=== PATIENT | female | born 1985 | race African-American/Black ===

== ENCOUNTER 2019-06-29 02:34 | Emergency (ER) | payer OTHER ==
[~2019-06-29] VITALS: Ht 175.3 cm; Wt 136.1 kg
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
[2019-06-29] MEDS ORDERED: Acetaminophen 500mg (ES) tab ORAL ONE (03:15)
[2019-06-29] MEDS ORDERED: Methocarbamol 750mg tab ORAL ONE (03:15)
[2019-06-29] MEDS ORDERED: LIDODERM700 M1 TOPIC (03:23)
[2019-06-29] MEDS ORDERED: ROBAXIN-750750 MG PO (03:23)
[2019-06-29] MEDS ORDERED: TYLENOL EXTRA500 MG ORAL (03:23)
[2019-06-29 03:26] VITALS: BP 148/86
[2019-06-29 03:30] VITALS: BP 148/86
--- NOTE | 2019-06-29 03:30 | NUR ---
ER DISCHARGE NOTE: Patient is cleared to be discharged per ERMD, pt is aox4, on room air, with stable vital signs. pt was given dc and prescription instructions, pt was able to verbalize understanding, pt id band removed without complications. pt is able to ambulate with steady gait. pt took all belongings.
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
== END 2019-06-29 03:30 | disposition home or self-care (01) ==
LOC: EMR 03:02
DX: M54.2 Cervicalgia (principal); M54.6 Pain in thoracic spine; V43.62XA Car passenger injured in collision with other type car in traffic accident, initial encounter; Y92.9 Unspecified place or not applicable; E66.9 Obesity, unspecified
CPT/HCPCS: 99282

== ENCOUNTER 2019-09-06 20:09 | Emergency (ER) | payer MEDICAID ==
[~2019-09-06] VITALS: Ht 175.3 cm; Wt 113.4 kg
[~2019-09-06 20:09] MED LIST: LIDODERM700 M1 TOPIC; ROBAXIN-750750 MG PO; TYLENOL EXTRA500 MG ORAL
--- NOTE | 2019-09-06 20:28 | NUR ---
ED Nurse Note: pt presents to ED c/o R arm pain that goes from her wrist to her shoulder. pt denies any trauma or injury to the area, she has never experienced this pain before. pt reports that she woke up with the pain, it is 10/10 and constant. pt states she took tylenol at home without relief of symptoms.
[2019-09-06 20:34] VITALS: BP 125/75
[2019-09-06] MEDS ORDERED: Ketorolac 30mg Inj IM ONE (21:15)
--- NOTE | 2019-09-06 21:17 | Emergency Room Report ---
History of Present Illness General Chief Complaint: Upper Extremity Injury Source: Patient Present Illness HPI Patient presents with right shoulder pain for 2 to 3 days. She is having difficulty even raising her elbow or any motion. She denies any trauma. 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 The hand feels different to her but she denies any numbness per se. Right now the pain is 10/10. She denies any fevers or chills. The pain is rated 9-10/10. It is aching and sharp. It does not radiate. It is worsened with movement. She feels some weakness in the arm due to the pain. No sore throat, chest pain, palpitations, nausea, vomiting, diarrhea, dysuria, abdominal pain, shortness of breath, rashes, depression, anxiety, visual changes , dizziness, headache. 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 Last Menstrual Period: 08/2019 Reviewed Nursing Documentation: PMH: Agreed; PSxH: Agreed Nursing Documentation-PMH Past Medical History: No Stated History Review of Systems All Other Systems: negative except mentioned in HPI Physical Exam Vital Signs Date Time Temp Pulse Resp B/P (MAP) Pulse Ox O2 Delivery O2 Flow Rate FiO2 09/06/19 20:19 99.1 87 16 125/75 (92) 98 Room Air Sp02 EP Interpretation: reviewed, normal General Appearance: well appearing, no apparent distress, GCS 15 Head: normocephalic Eyes: bilateral eye normal inspection, bilateral eye PERRL, bilateral eye EOMI ENT: other - Wearing mask Neck: full range of motion, supple Respiratory: normal inspection Cardiovascular #1: regular rate, rhythm Cardiovascular #2: 2+ radial (R) - Distal vascular normal Gastrointestinal: normal inspection Genitourinary: no CVA tenderness Musculoskeletal: gait/station normal, tenderness - Right shoulder biceps tendon without crepitance but painful passive range of motion. Neurologic: alert, motor strength/tone normal, sensory intact Psychiatric: mood/affect normal Skin: no rash, warm/dry Medical Decision Making Diagnostic Impression: Primary Impression: Shoulder tendinitis Qualified Codes: M75.81 - Other shoulder lesions, right shoulder ER Course Patient presents with right shoulder pain without history of trauma but involved in repetitive movements. Differential includes tendinitis, bursitis, torn rotator cuff amongst others. She denies any infective symptoms and is young to possibly have gout. X-rays are indicated. In addition Toradol shot will be given. X-ray with calcific tendinitis. Sling applied by tech. Position excellent with decreased pain. Neurovascular checked by me and normal. Patient improved with treatment. Discussed findings and treatment plan with patient. Patient stable for outpatient observation and treatment. Other X-Ray Diagnostic Results Other X-Ray Diagnostic Results : # of Views/Limited Vs Complete: 3 View Indication: Pain EP Interpretation: Yes Interpretation: no dislocation, no soft tissue swelling, no fractures, other - Calcific tendinitis Impression: Other Electronically Signed by: Electronically signed by Rocky Penn MD Last Vital Signs Date Time Temp Pulse Resp B/P (MAP) Pulse Ox O2 Delivery O2 Flow Rate FiO2 09/06/19 23:05 99.1 82 16 125/75 98 Room Air Status: improved Disposition: HOME, SELF-CARE Condition: Improved Scripts Acetaminophen (Tylenol) 325 Mg Tablet 650 MG ORAL Q6H PRN for Prn Pain/Headache/Temp > 101, #30 TAB 0 Refills Prov: Rocky Penn MD 09/06/19 Ibuprofen* (MOTRIN*) 600 Mg Tablet 600 MG ORAL Q6HR, #20 TAB Prov: Rocky Penn MD 09/06/19 Rocky Penn MD Sep 06, 2019 21:17
--- NOTE | 2019-09-06 21:31 | NUR ---
ED Nurse Note: pt's R arm placed in sling, pt reports relief of pain. Xray pt at bedside
--- NOTE | 2019-09-06 21:52 | Diagnostic Imaging Report ---
EXAM: XR Right Shoulder Complete, 2 or More Views CLINICAL HISTORY: PAIN TECHNIQUE: Two or more views of the right shoulder. COMPARISON: No relevant prior studies available. FINDINGS: Bones/joints: Calcific rotator cuff tendinopathy, tiny calcification along the rotator cuff expected course. No acute fracture. No dislocation. Soft tissues: See above. IMPRESSION: 1. No acute abnormality definitively identified to account for patient presentation. 2. Calcific rotator cuff tendinopathy, tiny calcification along the rotator cuff expected course. 3. Otherwise unremarkable study.
[2019-09-06] MEDS ORDERED: IBUPROFEN600 M1 ORAL (22:58)
[2019-09-06] MEDS ORDERED: TYLENOL325 MG ORAL (22:58)
[2019-09-06 23:05] VITALS: BP 125/75
== END 2019-09-06 23:05 | disposition home or self-care (01) ==
LOC: EMR 21:26
DX: M75.81 Other shoulder lesions, right shoulder (principal)
CPT/HCPCS: 73030; 96372; J1885; Z7502; 99283